=== PATIENT | male | born 1985 | race Two or more races ===

== ENCOUNTER 2021-11-15 10:49 | Emergency (ER) | payer OTHER ==
[~2021-11-15] VITALS: Ht 172.7 cm; Wt 93.0 kg
[2021-11-15 14:10] VITALS: BP 140/77
[2021-11-15] MEDS ORDERED: traMADol HCL 50 MG TAB PO ONE (14:15)
== END 2021-11-15 14:10 | disposition home or self-care (01) ==
LOC: EEVIPCON 10:49 → ER 10:49 → EDBD 10:49 → ER 14:10
DX: M79.605 Pain in left leg (principal)
CPT/HCPCS: 93971